=== PATIENT | female | born 1955 | race Caucasian/White ===

== ENCOUNTER 2019-11-13 16:27 | Emergency (ER) | payer BC, OTHER ==
--- NOTE | 2019-11-13 16:47 | ED ---
Abdominal Pain/Female - HPI Summary HPI Summary: Patient is a 64 y/o F presenting to the ED for a chief complaint of right-sided abdominal pain and abdominal distention that began approximately 6 weeks ago. Patient is present with her . Patient rates her abdominal pain as a 6/10 in severity. She denies any weight loss, nausea, vomiting, or fever. Last normal bowel movement was on 11/11/19, so she believes she is constipated. Any aggravating or alleviating factors are denied. She was sent to [facility] by her PCP. Patient reports concern for atypical appendicitis (however no fevers, n/v) . Any significant PMHx or PSHx is denied. FMHx is significant for DM and appendicitis. Denies fam hx ovarian pathology. - History of Current Complaint Chief Complaint: EDAbdPain Stated Complaint: ABDOMINAL PAIN PER PT Hx Obtained From: Patient Onset/Duration: Sudden Onset, Lasting Weeks - 6 weeks Timing: Constant Severity Initially: Moderate Severity Currently: Moderate Pain Intensity: 6 Pain Scale Used: 0-10 Numeric Location: Other - Right-sided Radiates: No Aggravating Factor(s): Nothing Alleviating Factor(s): Nothing Associated Signs and Symptoms: Positive: Constipation. Negative: Fever, Nausea , Vomiting, Other: - Negative weight loss Allergies/Adverse Reactions: Allergies Allergy/AdvReac Type Severity Reaction Status Date / Time latex Allergy Rash And Verified 11/13/19 16:34 Itching Penicillins Allergy Rash Verified 11/13/19 16:34 Home Medications: Home Medications Amlodipine 2.5 mg TAB (NF) 2.5 mg PO DAILY 11/13/19 [History Confirmed 11/13/19] Fluticasone NASAL SPRAY 50MCG* [Flonase NASAL SPRAY 50MCG*] 2 spray BOTH NARES DAILY 11/13/19 [History Confirmed 11/13/19] LoraTADine TAB(NF) [Claritin 10 MG TAB(NF)] 10 mg PO DAILY 11/13/19 [History Confirmed 11/13/19] Losartan TAB* [Cozaar TAB*] 100 mg PO DAILY 11/13/19 [History Confirmed 11/13/19 ] PMH/Surg Hx/FS Hx/Imm Hx Previously Healthy: Yes Endocrine/Hematology History: Denies: Hx Diabetes Cardiovascular History: Denies: Hx Hypercholesterolemia Sensory History: Denies: Hx Legally Blind, Hx Deafness Opthamlomology History: Denies: Hx Legally Blind EENT History: Denies: Hx Deafness - Surgical History Surgical History: None Surgery Procedure, Year, and Place: None Infectious Disease History: No Infectious Disease History: Denies: Traveled Outside the [place] in Last 30 Days - Family History Known Family History: Positive: Diabetes, Other - Appendicitis - Social History Occupation: Unemployed Lives: With Family Alcohol Use: None Hx Substance Use: No Substance Use Type: Reports: None Hx Tobacco Use: No Smoking Status (MU): Never Smoked Tobacco Review of Systems Negative: Fever, Other - Negative weight loss Positive: Abdominal Pain - Right-sided, Other - Positive constipation and abdominal distention. Negative: Vomiting, Nausea All Other Systems Reviewed And Are Negative: Yes Physical Exam - Summary Physical Exam Summary: Constitutional: Well-developed, Well-nourished, Alert. (-) Distressed Skin: Warm, Dry HENT: Normocephalic; Atraumatic Eyes: Conjunctiva normal Neck: Musculoskeletal ROM normal neck. (-) JVD, (-) Stridor, (-) Nuchal rigidity Cardio: Rhythm regular, rate normal, Heart sounds normal; Intact distal pulses; Radial pulses are 2+ and symmetric. (-) Murmur Pulmonary/Chest wall: Effort normal. (-) Respiratory distress, (-) Wheezes, (-) Rales Abd: Soft, (-) tenderness, (-) Guarding, (-) Rebound. Abdominal distention. Musculoskeletal: 1+ pitting edema in the bilateral LE. Lymph: (-) Cervical adenopathy Neuro: Alert, Oriented x3 Psych: Mood and affect Normal Triage Information Reviewed: Yes Vital Signs On Initial Exam: Initial Vitals Temp Pulse Resp BP Pulse Ox 97.3 F 111 16 174/94 97 11/13/19 16:30 11/13/19 16:30 11/13/19 16:30 11/13/19 16:30 11/13/19 16:30 Vital Signs Reviewed: Yes Procedures - Sedation Patient Received Moderate/Deep Sedation with Procedure: No Diagnostics - Vital Signs Vital Signs Temp Pulse Resp BP Pulse Ox 11/13/19 16:30 97.3 F 111 16 174/94 97 - Laboratory Result Diagrams: 11/13/19 17:16 11/13/19 17:16 Lab Statement: Any lab studies that have been ordered have been reviewed, and results considered in the medical decision making process. - CT Abdomen/Pelvis CT CT Interpretation Completed By: Radiologist Summary of CT Findings: Abdomen/Pelvis CT IMPRESSION: . Reviewed by Dr. Duggan. Abdominal Pain Fem Course/Dx - Course Course Of Treatment: 64 y/o F w worsening abdominal distention and pain for months. - distended abdomen, positive bowel sounds, patient still having BMs, low suspicion for obstruction. Discussed with patient my concern for ovarian pathology given the rapid growth of painless distention without other symptoms. Mild leukocytosis on labs. No infectious symptoms. Plan for CT scan abd pelvis , labs. - bedside ultrasound with large cystic structure no obvious ascites. - Diagnoses Provider Diagnoses: Ovarian mass Discharge ED - Sign-Out/Discharge Documenting (check all that apply): Sign-Out Patient Signing out patient TO: José Manuel Thomas - Patient is a sign-out at 19:00 on 11/[address] Flaquito Duggan MD to Dr. José Manuel Thomas MD at shift change, pending imaging results, further workup, and disposition. - Discharge Plan Condition: Stable Disposition: HOME Referrals: Josse Schultz MD [Medical Doctor] - Additional Instructions: Contact Dr. Schultz's office in the morning, they will get you in to see him or one of his colleagues this week, and will go over what the next steps are for you. I don't expect you to develop any dramatic change in your symptoms in the interim, but certainly we are here for you if you do. - Billing Disposition and Condition Condition: STABLE Disposition: Home - Attestation Statements Document Initiated by Neryibe: Yes Documenting Scribe: Shanice Torres Provider For Whom Mikie is Documenting (Include Credential): Flaquito Duggan MD Scribe Attestation: I, Shanice Torres, scribed for Flaquito Duggan MD on 11/14/19 at 1113. Scribe Documentation Reviewed: Yes Provider Attestation: The documentation as recorded by the neryibe, Shanice Torres accurately reflects the service I personally performed and the decisions made by me, Flaquito Duggan MD Status of Scribe Document: Viewed
--- OUTSIDE RECORDS SUMMARY | 2019-11-13 16:47 | XMS REPORT | Summary of Care ---
:1955 Author Organization [facility] Address [address] [place] [address] Care Team Providers Name Role Phone Rhonda Del Valle MD Primary Care Provider Reason for Visit Reason Comments Abdominal Pain pt complains of pain across abdomin pain is dull, Abdomin has been distended fsince Thanksgiving Encounter Details Date Type Department Care Team Description 11/13/2019 Office Visit [facility] Rhondajeffreysha, Distended abdomen ( Primary Dx); Practice Rhonda Ríos MD Essential hypertension, benign; [address] [facility] Abdominal pain, unspecified abdominal location; [place] [address] [place] [address] Diabetes mellitus type 2, diet-controlled (HCC); [phone] Mixed hyperlipidemia; Statin intolerance Allergies Active Allergy Reactions Severity Noted Date Comments Berny Inhibitors Other 05/29/2012 Cough Latex Rash Medium 06/14/2019 documented as of this encounter (statuses as of 11/13/2019) Medications Medication Sig Dispensed Refills Start Date End Date Status Loratadine 10 MG Take 10 mg 0 Active Oral Cap by mouth DAILY. fluticasone spray 2 16 g 5 09/19/2018 Active (FLONASE) 50 sprays IN MCG/ACT Nasal NOSE DAILY SuspensionIndicat ions: Allergic rhinitis Losartan Take 1 Tab 90 Tab 3 11/13/2019 Active Potassium 100 MG by mouth Oral DAILY. TabIndications: Essential hypertension, benign amLodipine Take 1 Tab 90 Tab 3 11/13/2019 Active (NORVASC) 2.5 MG by mouth Oral DAILY. TabIndications: Essential hypertension, benign amLodipine take 1 90 Tab 3 09/19/2018 11/13/2019 Discontinued (NORVASC) 2.5 MG tablet by (Reorder) Oral mouth daily TabIndications: Essential hypertension, benign Losartan take 1 90 Tab 3 09/19/2018 11/13/2019 Discontinued Potassium 100 MG tablet by (Reorder) Oral mouth daily TabIndications: Essential hypertension, benign documented as of this encounter (statuses as of 11/13/2019) Active Problems Problem Noted Date Diabetes mellitus type 2, diet-controlled 06/14/2019 Statin intolerance 06/14/2019 Essential hypertension, benign 02/01/2012 Mixed hyperlipidemia 02/01/2012 documented as of this encounter (statuses as of 11/13/2019) Resolved Problems Problem Noted Date Resolved Date Uncontrolled type 2 diabetes mellitus 09/07/2018 06/14/2019 documented as of this encounter (statuses as of 11/13/2019) Immunizations Name Administration Dates Next Due Influenza (IM) Preservative Free 07/06/2017, 07/02/2016, 07/08/2015, 10/18/2014 Influenza Vaccine High Dose 07/16/2019, 07/03/2018 TETANUS & DIPHTHERIA TOXOID (OVER 7 08/25/2017 YRS) documented as of this encounter Social History Tobacco Use Types Packs/Day Years Used Date Never Smoker Smokeless Tobacco: Never Used Alcohol Use Drinks/Week oz/Week Comments Yes rare Sex Assigned at Date Recorded Not on file Job Start Date Occupation Industry Not on file Not on file Not on file Travel History Travel Start Travel End No recent travel history available. documented as of this encounter Last Filed Vital Signs Vital Sign Reading Time Taken Comments Blood Pressure 150/80 11/13/2019 3:31 PM EST Pulse 105 11/13/2019 3:31 PM EST Temperature 37.8 11/13/2019 3:31 PM EST C (100 F) Respiratory Rate - - Oxygen Saturation 97% 11/13/2019 3:31 PM EST Inhaled Oxygen Concentration - - Weight 68.9 kg (152 lb) 11/13/2019 3:31 PM EST Height - - Body Mass Index 26.93 06/14/2019 10:52 AM EDT documented in this encounter Patient Instructions Patient InstructionsRhonda Del Valle MD - 11/13/2019 3:20 PM ESTYou have significant distention of your abdomen, decreased bowel wounds and some tenderness more in your right lower quadrant. I can do laboratory tests here but cannot get them stat and cannot do a stat abdominal CT. I feel you need both. I worry about a bowel obstruction and recommend you go to [facility] ER for evaluation. They can do the above stat testing there. Since you hurt more on the right, I also wonder if you may have appendicitis. Please go right to [facility] ER and I will call them to let them know you are coming.Electronically signed by Rhonda Del Valle MD at 4:03 PM EST documented in this encounter Progress Notes Rhonda Del Valle MD - 11/13/2019 3:20 PM EST Nursing Notes: Luisa Simons LPN 11/13/2019 3:42 PM Signed Chief Complaint Patient presents with Abdominal Pain pt complains of pain across abdomin pain is dull, Abdomin has been distended fsince Thanksgiving SUBJECTIVE: Shanice Brand is an 64-y.o. female who presents for evaluation and treatment of abdominal pain since 09/17/19 or so. She has Type 2 diabetes mellitus. She complains of abdominal bloatng and aching since thanksgiving. No pain until 4 days ago. Patient presents with abdominal pain. The pain is described as pressure like back, feels like something crawling under her skin right upper quadrant if very localized area, and is 2/10 in intensity. It can spike to an 8/10 with movement. Pain is located in the diffusely, moslty lower abdomen, sometimes upper. without radiation. Onset was 8 weeks ago. Symptoms have been intermittent since. Aggravating factors: movement and bending Now worsened with eating. Usually has a daily bowel movement but skipped yesterday, today it was small. 2 days ago her bowel movement was normal No dysuria. She has not noted a change in gas, but normally does not pass a lot. Alleviating factors: Rubbing her back, massaging her back, extending to stretch.. Associated symptoms: bloating. The patient denies anorexia, belching, chills, constipation, diarrhea, dysuria, fever, frequency, hematochezia, hematemesis, hematuria, melena, nausea, sweats, vomiting and weight loss. Noon: Green salad, cracker rpior to appointment. Plan last visits: She opts to do dexa and pneumovax at age 63, declines them now Declines Shingrix. Dicussed zetia as an alternative to statins. She is thinking about an over the counter supplement instead. Family history: positive for diabetes in the patients Paternal Grandmother. Previous treatment modalities employed include diet. Current treatment includes diet. Current monitoring regimen: none Home blood sugar records: NA Statins declines, not tolerated Home BP is low at home, 116 SBP range. Last HgbA1c: Lab Results Component Value Date GLYCO 6.5 (H) 05/31/2019 GLYCO 7.1 (H) 09/07/2018 GLYCO 6.7 (H) 08/19/2017 Last eye exam: 02/09, Dr hutchison Last microalbumin: 05/2019 Last microfilament foot exam: 05/2019 LDL: Lab Results Component Value Date CHOL 246 (H) 05/31/2019 TRIG 131 05/31/2019 HDL 38 (L) 05/31/2019 LDL 182 (H) 05/31/2019 LDLHDLRATIO 4.8 05/31/2019 CHOLHDLRATIO 6.5 05/31/2019 Lab Results Component Value Date NA 140 05/31/2019 K 4.2 05/31/2019 CL 104 05/31/2019 CO2 25 05/31/2019 GLUCOSE 146 (H) 05/31/2019 BUN 13 05/31/2019 CREATININE 0.6 (L) 05/31/2019 CALCIUM 9.5 05/31/2019 TP 7.8 05/31/2019 ALBUMIN 4.4 05/31/2019 AST 37 05/31/2019 ALT 24 05/31/2019 ALK 76 05/31/2019 TBILI 0.6 05/31/2019 EGFR >60 05/31/2019 Immunizations: Immunization History Administered Date(s) Administered Influenza (IM) Preservative Free 10/18/2014, 07/08/2015, 07/02/2016, Influenza Vaccine High Dose 07/03/2018, 07/16/2019 TETANUS & DIPHTHERIA TOXOID (OVER 7 YRS) 08/25/2017 Diabetic complications: none Cardiovascular risk factors: lipids and diabetes mellitus Outpatient Medications as of 06/14/2019 Medication Sig Dispense Refill amLodipine (NORVASC) 2.5 MG Oral Tab take 1 tablet by mouth daily 90 Tab 3 fluticasone (FLONASE) 50 MCG/ACT Nasal Suspension spray 2 sprays IN NOSE DAILY 16 g 5 Loratadine 10 MG Oral Cap Take 10 mg by mouth DAILY. Losartan Potassium 100 MG Oral Tab take 1 tablet by mouth daily 90 Tab 3 No current facility-administered medications on file as of 06/14/2019. Allergies Allergen Reactions Latex Rash Berny Inhibitors Other Cough Past Medical History: Diagnosis Date Essential (primary) hypertension 2006 Essential hypertension, benign Hyperlipidemia Mixed hyperlipidemia Postmenopausal , first Sciatica of right side Past Surgical History: Procedure Laterality Date CO DELIVERY ONLY Family History Problem Relation Age of Onset Heart Mother rheumatic valve disease No Known Problems Child No Known Problems Child Diabetes Paternal Grandmother Diabetes Other Social History Tobacco Use Smoking status: Never Smoker Smokeless tobacco: Never Used Substance Use Topics Alcohol use: Yes Comment: rare Review Of Systems Skin: negative for rash Eyes: negative for blurred vision or vision changes Ears/Nose/Throat: negative Respiratory: Denies shortness of breath or URI symptoms Cardiovascular: negative for chest pain or pressure, no orthopnea Gastrointestinal: negative for abdominal pain, difficulty swallowing Genitourinary: negative for dysuria or frequency Musculoskeletal: negative for edema, negative for ankle pain Neurologic: negative for dizziness, syncope Psychiatric: negative for depression Hematologic/Lymphatic/Immunologic: negative for unexpected weight loss Endocrine: negative for polydipsia, polyuria Cardiovascular ROS: no chest pain or dyspnea on exertion OBJECTIVE: BP (!) 150/80 | Pulse 105 | Temp 100 F (37.8 C) | Wt 152 lb (68.9 kg ) | SpO2 97% | BMI 26.93 kg/m General appearance: alert, no distress, oriented times 3, she looks remarkably good for the amount of abdominal distention she has. Skin: Skin color, texture, turgor normal. No rashes or lesions. Eyes: conjunctivae/corneas clear. PERRL, EOM's grossly intact. Ears: negative findings: external ears normal to inspection and palpation Oropharynx: negative findings: lips normal without lesions Neck: Neck supple. No cervical or supraclavicular adenopathy. Thyroid symmetric , normal size. Carotids 4/4 without bruits. Lungs:. Lungs clear with good aeration. Chest symmetrical. Normal breath sounds bilaterally. Heart: Regular rate and rhythm. No murmurs, clicks or gallops. Abdomen: Abdomen tense, distended to about a 9 month level, diffusely tender to palpation with rebound, worse right lower quadrant. BS scant high pitch right lower quadrant otherwise absent. No obvious masses, organomegaly but exam is difficult due to her level of distension. No bruits. Extremities: Extremities without deformities, edema, or skin discoloration. Station and gait normal. Neuro: Gait normal, strength grossly normal and symmetric. ASSESSMENT/PLAN: ICD-9-CM ICD-10-CM 1. Distended abdomen 787.3 R14.0 2. Essential hypertension, benign 401.1 I10 Losartan Potassium 100 MG Oral Tab amLodipine (NORVASC) 2.5 MG Oral Tab 3. Abdominal pain, unspecified abdominal location 789.00 R10.9 CBC WITH DIFFERENTIAL COMPREHENSIVE METABOLIC PANEL 4. Diabetes mellitus type 2, diet-controlled (HCC) 250.00 E11.9 GLYCOHEMOGLOBIN A1C 5. Mixed hyperlipidemia 272.2 E78.2 6. Statin intolerance 995.27 Z78.9 Patient has significant abdominal distention, is very stoic but does have pain with palpation, walking, jumping, hurt hitting bumps riding in the car. She wondered about appendicitis when this first started, but decided she did not because she could still eat and had no nausea. I do wonder if she did indeed start with appendicitis and now has a bowel obstruction. Diverticulitis is also a possibility. Her elevated BP, pulse, and temp are new, so I worry about infection. She agrees to go to the ER for further evaluation. I called [facility] ER and spoke with triage nurse, Geno with the above information. Patient is not to eat prior to going to the ER. She called her to pick her up and take her. She has been drinking water. Refills that were requested sent in as above. Patient Instructions You have significant distention of your abdomen, decreased bowel wounds and some tenderness more in your right lower quadrant. I can do laboratory tests here but cannot get them stat and cannot do a stat abdominal CT. I feel you need both. I worry about a bowel obstruction and recommend you go to [facility] ER for evaluation. They can do the above stat testing there. Since you hurt more on the right, I also wonder if you may have appendicitis. Please go right to [facility] ER and I will call them to let them know you are coming. Author: Rhonda Del Valle MD 11/13/2019 16:14 documented in this encounter Plan of Treatment Date Type Specialty Care Team Description 11/22/2019 Lab Internal Medicine 11/29/2019 Office Visit [facility] Rhonda Del Valle MD [address] [place] [address] [phone] Name Type Priority Associated Diagnoses Order Schedule CBC WITH DIFFERENTIAL Lab Routine Abdominal pain, Expected: 11/13/2019 unspecified abdominal (Approximate), location Expires: 11/13/2020 COMPREHENSIVE METABOLIC Lab Routine Abdominal pain, Expected: 02/12/2020 PANEL unspecified abdominal (Approximate), location Expires: 11/13/2020 GLYCOHEMOGLOBIN A1C Lab Routine Diabetes mellitus type Expected: 02/12/2020 2, diet-controlled (Approximate), (HCC) Expires: 11/13/2020 Health Maintenance Due Date Last Done Comments ZOSTER IMMUNIZATION SERIES 2003 (1 of 2) OSTEOPOROSIS SCREENING 2018 PNEUMOCOCCAL 65+YRS (1 of 2 2018 - PCV13) HEMOGLOBIN A1C 12/01/2019 05/31/2019, 09/07/2018, 08/19/2017, Additional history exists LIPID DISORDER SCREENING 05/31/2020 05/31/2019, 09/07/2018, 08/19/2017, Additional history exists FOOT EXAM 06/14/2020 06/14/2019, 06/14/2019, 06/14/2019, Additional history exists DEPRESSION SCREENING 11/13/2020 11/13/2019 FALL RISK ASSESSMENT 11/13/2020 11/13/2019, 11/13/2019 Diabetic Eye Exam 02/12/2021 02/12/2019 DTaP/Tdap/Td Vaccines (2 - 08/25/2027 08/25/2017 Tdap) INFLUENZA VACCINE Completed 07/16/2019, 07/03/2018, 07/06/2017, Additional history exists HEPATITIS A IMMUNIZATION Aged Out No longer eligible SERIES based on patient's age to complete this topic HPV IMMUNIZATION SERIES Aged Out No longer eligible based on patient's age to complete this topic MENINGOCOCCAL VACCINE IMM Aged Out No longer eligible based on patient's age to complete this topic documented as of this encounter Goals Goal Patient Goal Associated Recent Patient-Stated? Author Type Problems Progress Blood Pressure Blood Pressure Essential 150/80 No [place], < 140/90 hypertension, (11/13/2019 Delia, benign 3:31 PM EST) Note: Hypertension Care Plan Based on the patient's clinical history and according to JNC 8 guidelines target blood pressure goal is less than 140/90. Based on the patient's last blood pressure of BP: 126/68 mmHg the patient is at at goal. As your provider, it is important that I advise you regarding: your current medications and help you with any challenges you may face taking your medications as directed (ex. instructions, cost, side effects, and interactions). Important lifestyle changes: weight reduction your clinical goals and how you can achieve success: weight reduction and exercise plan medication management: adjusted medications as appropriate patient education/self-management tools provided: Current self-management tools adequate To successfully manage my Hypertension I will: monitor my blood pressure daily, understanding that my goal is less than 140/ 90 per my healthcare provider's recommendation. I will schedule an appointment with my provider if consistent abnormal readings greater than 160/100. take medications every day as prescribed by my healthcare provider and if unable to take them I will discuss with my provider. monitor for symptoms of chest pain, chest tightness/pressure, irregular heartbeat, persistent dizziness, radiating arm pain, and neck or jaw pain. If any of these symptoms are noticed I will seek medical attention immediately by calling 911 exercise/walk 15 minutes 3 day(s) per week. If I experience chest pain, chest tightness, or shortness of breath, I will seek medical attention immediately. follow a diet rich in fruits, vegetables, and low-fat dairy products with reduced content of saturated & total fat. I will reduce my sodium intake daily. An example is the DASH diet. To obtain more information please refer to the DASH Eating Plan listed in Educational Resources. record my blood pressure results. [employer]bye is safe and secure way for you to do this in your medical record online. try to obtain an ideal body weight. My recent weight was Weight: 152 lb 8 oz (69.174 kg). My weight loss goal for my next office visit is 5# less. limit alcohol consumption. For men two drinks per day and women one drink per day. if currently smoking, will discuss how to quit smoking with my healthcare provider and work towards quitting. Educational Resources: National Heart, Lung, & Blood [place] http://nhlbi.nih.gov/hbp/index.html The DASH Diet Eating Plan http://www.nhlbi.nih.gov/health/health-topics/ topics/dash/ Academy of Nutrition & DIetetics http://eatright.org National Smoking Cessation Site http://smokefree.gov Blood Pressure < Blood Pressure 150/80 (11/13/2019 Rhonda Brambila 150/90 3:31 PM EST) MD [place] Note: This is an individualized treatment (blood pressure) goal for Shanice Brand: Displayed above (on the left) is your goal for blood pressure control. Your most recent blood pressure is also shown above, on the right. You should try to achieve blood pressures that are lower than your goal listed above (on the left). Glycohemoglobin A1c < 7.0 Diabetes 6.5 (05/31/2019 10:28 No Rhonda Del Valle AM EDT) MD [place] Note: This is an individualized treatment (diabetes control, HgbA1C) goal for Shanice Brand: Displayed above is your progress towards your HgbA1C goal. Your goal is shown above (on the left); your most recent HgbA1C is shown on the right. Note that lower numbers are better. Keep immunizations current Lifestyle No Rhonda Del Valle MD Note: This is an individualized lifestyle goal for Shanice Brand: Please be sure to keep up-to-date on recommended immunizations. For example, this would include a yearly influenza vaccine. Immunization status can be seen by looking at the Health Maintenance sections of your [facility], Plan of Care, and any After Visit Summaries. Take all prescribed medications as Self-management No Rhonda Del Valle MD directed Note: This is an individualized self-management goal for Shanice Brand: Please take all prescribed medications as directed. 1. Do not skip doses. If you cannot afford your medications, talk with your doctor. 2. Use a pill reminder system such as a pill box if needed. Your pharmacist can help you with this. 3. Contact your Pharmacy 5 days before your medication runs out. If you cannot take your medications for any reasons, talk with your doctor. 4. Please bring all of your medication bottles and inhalers (or a list of all your medications/inhalers) with you to every visit. Potential barriers to meeting all of your care plan goals will continue to be addressed on an ongoing basis. documented as of this encounter Results Not on filedocumented in this encounter Visit Diagnoses Diagnosis Essential hypertension, benign Abdominal pain, unspecified abdominal location Diabetes mellitus type 2, diet-controlled (HCC) Type II or unspecified type diabetes mellitus without mention of complication, not stated as uncontrolled Mixed hyperlipidemia Statin intolerance Other drug allergy Distended abdomen Flatulence, eructation, and gas pain documented in this encounter Insurance Payer Benefit Plan / Subscriber ID Effective Dates Phone Address Type Group [facility] xxxxxxxxxxxx 2018-Present Blue [employer]/Blue Shield Guarantor Name Account Type Relation to Date of Phone Billing Patient Address Shanice Brand Personal/Family 1955 [id number] (Home) [place], [place] [phone] [id number] (Work) documented as of this encounter"
[2019-11-13 17:38] LABS: ABS Basophils 0.1 10^3/ul (0-0.2); ABS Eosinophils 0.1 10^3/ul (0-0.6); ABS Lymphocytes 1.5 10^3/ul (1.0-4.8); ABS Monocytes 1.2 10^3/ul (0-0.8); ABS Neutrophils 9.1 10^3/ul (1.5-7.7); Eosinophil % 0.9 %; Hematocrit 40 % (35-47); Hemoglobin 13.6 g/dL (12.0-16.0); Lymphocyte % 12.5 %; Mean Corpuscular HGB Conc 34 g/dL (31-36); Mean Corpuscular Hemoglobin 31 pg (27-31); Mean Corpuscular Volume 90 fL (80-97); Mean Platelet Volume 7.3 fL (7.4-10.4); Platelet Count 460 10^3/uL (150-450); Red Blood Count 4.42 10^6 /uL (3.70-4.87); Red Cell Distribution Width 13 % (10-15)
[2019-11-13 17:43] LABS: Albumin 4.3 g/dL (3.2-5.2); Albumin/Globulin Ratio 1.3 (1-3); BUN/Creatinine Ratio 19.6 (8-20); Calcium 9.4 mg/dL (8.6-10.3); EGFR African American 131.1 (>60); EGFR Non-African American 108.3 (>60); Globulin 3.4 g/dL (2-4); Potassium 3.7 mmol/L (3.5-5.0); Total Bilirubin 0.7 mg/dL (0.2-1.0); Total Protein 7.7 g/dL (6.4-8.9)
[2019-11-13] MEDS ORDERED: Iohexol 300* (CONTRAST) 10 ML SDV IV ONE (17:56)
--- NOTE | 2019-11-13 19:13 | ED ---
Progress - Progress Note Progress Note: Pt is a signout from Dr. Duggan at 1900 on 11/13/[address] a/p results. - Results/Orders Results/Orders: CT a/p shows: 1. 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 2. 2.9 cm indeterminate right adrenal nodule. Further evaluation can be performed on a nonemergent basis with an adrenal protocol CT abdomen without and with intravenous contrast using 70-second and 15-minute scan delays after the administration of the intravenous contrast. 3. Cholelithiasis without CT evidence for cholecystitis. 4. Uterine fibroid. 5. Sigmoid diverticulosis without evidence for diverticulitis. 6. Mild anterior wedge compression fracture of L1 with buckling of the cortex posteriorly by 2 mm into the spinal canal, but without any significant spinal 9canal stenosis at the level of the retropulsion. 7. 4 mm solid pulmonary nodule in the right middle lobe. See management guidelines below. ED physician has reviewed this report. Course/Dx - Course Course Of Treatment: Pt is a signout from Dr. Duggan at 1900 on 11/13/[address] a/p results. CT a/p shows: 1. 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 2. 2.9 cm indeterminate right adrenal nodule. Further evaluation can be performed on a nonemergent basis with an adrenal protocol CT abdomen without and with intravenous contrast using 70- second and 15-minute scan delays after the administration of the intravenous contrast. 3. Cholelithiasis without CT evidence for cholecystitis. 4. Uterine fibroid. 5. Sigmoid diverticulosis without evidence for diverticulitis. 6. Mild anterior wedge compression fracture of L1 with buckling of the cortex posteriorly by 2 mm into the spinal canal, but without any significant spinal 9canal stenosis at the level of the retropulsion. 7. 4 mm solid pulmonary nodule in the right middle lobe. See management guidelines below. I spoke with Dr. Schultz at 1938 who states that the pt can follow up with him outpatient. I discussed the results with the pt and I instructed her to f/u with Dr. Schultz's office in the morning for further evaluation and treatment of her mass. She will be d/c'ed with dx of ovarian mass. She is stable and agreeable with this plan. - Diagnoses Provider Diagnoses: Ovarian mass Discharge ED - Sign-Out/Discharge Documenting (check all that apply): Patient Departure, Receiving Sign-Out Receiving patient FROM: Flaquito Hansel Olga Lidia - Discharge Plan Condition: Stable Disposition: HOME Referrals: Josse Schultz MD [Medical Doctor] - Additional Instructions: Contact Dr. Schultz's office in the morning, they will get you in to see him or one of his colleagues this week, and will go over what the next steps are for you. I don't expect you to develop any dramatic change in your symptoms in the interim, but certainly we are here for you if you do. - Billing Disposition and Condition Condition: STABLE Disposition: Home - Attestation Statements Document Initiated by Mikie: Yes Documenting Scribe: Kourtney Rodriguez Provider For Whom Mikie is Documenting (Include Credential): José Manuel Thomas MD. Scribe Attestation: Kourtney Brunner, scrsaied for José Manuel Thomas MD. on 11/14/19 at 0540. Scribe Documentation Reviewed: Yes Provider Attestation: The documentation as recorded by the Kourtney pantoja accurately reflects the service I personally performed and the decisions made by me, José Manuel Thomas MD. Status of Scribe Document: Viewed
[2019-11-13 20:27] VITALS: BP 138/75
== END 2019-11-13 20:15 | disposition home or self-care (01) ==
LOC: ED 16:27
DX: N83.201 Unspecified ovarian cyst, right side (principal); K80.20 Calculus of gallbladder without cholecystitis without obstruction; D25.9 Leiomyoma of uterus, unspecified; K57.30 Diverticulosis of large intestine without perforation or abscess without bleeding; R91.1 Solitary pulmonary nodule; Z79.899 Other long term (current) drug therapy; Z88.0 Allergy status to penicillin; Z91.040 Latex allergy status
CPT/HCPCS: 36415; 74177; 80053; 85025; 99283; Q9967